=== PATIENT | male | born 1955 | race Caucasian/White ===

== ENCOUNTER 2018-08-12 16:15 | Emergency (ER) | payer OTHER ==
[2018-08-12] MEDS: LIDOCAINE 1% (MDV) 10 ML INJ INJ (21:50)
[2018-08-12] MEDS: LIDOCAINE 1% (MDV) 20 ML INJ INJ (22:44)
== END 2018-08-12 22:45 | disposition home or self-care (01) ==
LOC: FTE 16:15
DX: L02.212 Cutaneous abscess of back [any part, except buttock and flank] (principal)
CPT/HCPCS: 10060; 99283-25

== ENCOUNTER 2018-08-14 05:58 | Emergency (ER) | payer OTHER | END 2018-08-14 08:05 | disposition home or self-care (01) | LOC: FTE 08:05 | DX: Z48.01 Encounter for change or removal of surgical wound dressing (principal); E11.9 Type 2 diabetes mellitus without complications | CPT/HCPCS: 99281 ==